=== PATIENT | male | born 1960 | race Caucasian/White ===

== ENCOUNTER → 2017-01-26 | Outpatient (CLI) | payer BC ==
[2017-01-26 18:05] LABS: Total Bilirubin 0.9 mg/dL (0.2-1.3); Total Protein 6.7 g/dL (6.3-8.2)
[2017-01-26 18:18] LABS: Amorphous Sediment,Urine Rare /hpf; Appearance,Urine Clear (Clear); Bilirubin,Urine Negative (Negative); Glucose,Urine (UA) Negative (Negative); Ketones,Urine Negative (Negative); Leukocyte Esterase,Urine Negative (Negative); Mucus,Urine Occasional /hpf; Nitrite,Urine Negative (Negative); PH, Urine 5.5 (5.0-8.0); Particle Count 2803; Protein,Urine Trace (Negative); RBC,Urine 1 /hpf (0-5); Specific Gravity,Urine 1.027 (1.001-1.035); UA Billing (MACRO vs. MICRO) MICRO; Urobilinogen,Urine <2.0 mg/dL (<2.0); WBC,Urine 1 /hpf (0-5)
== END | disposition home or self-care (01) ==
LOC: LABPAT 16:53
PROVIDERS: ATTEND Orthopaedic Surgery
DX: Z01.812 Encounter for preprocedural laboratory examination (principal)
CPT/HCPCS: 36415; 81001; 82040; 82247; 82310; 82947; 84075; 84155; 84450; 84460; 87070

== ENCOUNTER 2019-09-29 06:37 | Emergency (ER) | payer BC, OTHER ==
[2019-09-29] MEDS ORDERED: diazePAM 5 MG TAB PO STA (07:23)
[2019-09-29] MEDS ORDERED: IBUPROFEN 600 MG TAB PO STA (07:24)
--- NOTE | 2019-09-29 07:52 | CT ---
EXAMINATION TYPE: CT cervical spine wo con DATE OF EXAM: 09/29/2019 COMPARISON: None. HISTORY: twisting injury, neck spasms and pain CT DLP: 542.8 mGycm Automated exposure control for dose reduction was used. TECHNIQUE: CT scan of the cervical spine is obtained without contrast, axial images are obtained, sa gittal and coronal reformatted images are also reviewed. FINDINGS: Visualized portions of the lungs are clear. Prevertebral soft tissues are normal. Vertebral body height and alignment are maintained. Atlantoaxial relationships are maintained. No fra ctures are seen. At C2-3, there is no significant compressive discopathy. The facet and uncovertebral joints are unrem arkable. At C3-4, there is disc space loss and hypertrophic spondylosis anteriorly. There is a mixed spondylit ic bar present posteriorly. There is bilateral intervertebral foraminal narrowing. There is minimal f acet arthropathy. There is mild uncovertebral joint disease. C4-5, there is right-sided intervertebral foraminal narrowing. There is a mixed spondylitic bar poste rior laterally on the right causing right-sided intervertebral foraminal narrowing. There is mild fac et arthropathy and mild uncovertebral joint disease. At C5-6, there is disc space loss and hypertrophic spondylosis anteriorly. There is a mixed spondylit ic bar present posteriorly effacing and mildly deforming the thecal sac. There is bilateral intervert ebral foraminal narrowing. There is moderate uncovertebral joint disease. The facets are unremarkable . At C6-7, there is disc space loss. This hypertrophic spondylosis anteriorly. There is a mixed spondyl itic bar present posteriorly effacing the thecal sac. There is bilateral intervertebral foraminal jemma rowing which is fairly severe. There is mild facet arthropathy and mild uncovertebral joint disease. At C7-T1 the intervertebral foramina appear well maintained. There is no significant compressive disc opathy. There is mild facet arthropathy. IMPRESSION: 1. NO ACUTE OSSEOUS LESION. 2. DIFFUSE DEGENERATIVE DISC DISEASE AND HYPERTROPHIC SPONDYLOSIS. 3. MULTILEVEL INTERVERTEBRAL FORAMINAL NARROWING. 4. 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
--- NOTE | 2019-09-29 08:13 | ED ---
General Adult HPI - General Chief complaint: Back Pain/Injury Stated complaint: [facility] - Back & Neck Pain Time Seen by Provider: 09/29/19 07:03 Source: patient, RN notes reviewed, old records reviewed Mode of arrival: ambulatory Limitations: no limitations - History of Present Illness Initial comments: 59-year-old male patient passed medical history of Lipidemia, Arthritis prior back surgery presents ED chief complaint of cervical pain. Patient reports that on September 10 he was pulling on a heavy door Abiel when he felt his neck. Since then he's had continued pain at the C5 C6 C7 region of his cervical spine. Patient has seen his primary care provider he has had x-rays done has also had multiple manipulations by a chiropractor approximately one week ago. He reports he continues to have pain in his neck and the particulars having muscle spasms into his right trapezius region which are very uncomfortable. Patient reports that he occasionally has some paresthesias extending down his left arm however these come and go. Denies any other acute complaints. Systemic: Pt denies fatigue, fever/chills, rash. Pt denies weakness, night sweats, weight loss. Neuro: Pt denies headache, visual disturbances, syncope or pre-syncope. HEENT: Pt denies ocular discharge or irritation, otalgia, rhinorrhea, pharyngitis or notable lymphadenopathy. Cardiopulmonary: Pt denies chest pain, SOB, heart palpitations, dyspnea on exertion. Abdominal/GI: Pt denies abdominal pain, n/v/d. : Pt denies dysuria, burning w/ urination, frequency/urgency. Denies new onset urinary or bowel incontinence. MSK: Pt denies loss of strength or function in extremities. Neuro: Pt denies new onset weakness, paresthesias. - Related Data Home Medications Medication Instructions Recorded Confirmed Atorvastatin [Lipitor] 10 mg PO DAILY 01/27/17 01/30/17 Previous Rx's Medication Instructions Recorded Aspirin 325 mg PO BID #60 tab 02/01/17 HYDROcodone/APAP 7.5-325MG [[place] 1 - 2 tab PO Q4-6H PRN #90 tab 02/01/17 7.5-325] Meloxicam [Mobic] 7.5 mg PO DAILY #14 tab 02/01/17 Sennosides-Docusate Sodium 1 tab PO BID #60 tablet 02/01/17 [Senokot-S] diazePAM [Valium] 5 mg PO BID #14 tab 02/01/17 Cyclobenzaprine [Flexeril] 1 - 2 tab PO TID #20 tablet 09/29/19 Allergies Allergy/AdvReac Type Severity Reaction Status Date / Time No Known Allergies Allergy Verified 01/30/17 14:15 Review of Systems ROS Statement: Those systems with pertinent positive or pertinent negative responses have been documented in the HPI. ROS Other: All systems not noted in ROS Statement are negative. Past Medical History Past Medical History: Hyperlipidemia Additional Past Medical History / Comment(s): arthritis in hips, borderline cholesterol, History of Any Multi-Drug Resistant Organisms: None Reported Past Surgical History: Back Surgery, Tonsillectomy Additional Past Surgical History / Comment(s): 3 disks in back shaved, Past Anesthesia/Blood Transfusion Reactions: No Reported Reaction Past Psychological History: No Psychological Hx Reported Past Alcohol Use History: Rare Past Drug Use History: None Reported - Past Family History Mother Family Medical History: Cancer General Exam - General Exam Comments Initial Comments: Constitutional: NAD, AOX3, Pt has pleasant affect. HEENT: NC/AT, trachea midline, neck supple, no lymphadenopathy. Posterior pharynx non erythematous, without exudates. External ears appear normal, without discharge. Mucous membranes moist. Eyes PERRLA, EOM intact. There is no scleral icterus. No pallor noted. Cardiopulmonary: RRR, no murmurs, rubs or gallops, no JVD noted. Lungs CTAB in anterior and posterior hernandez. No peripheral edema. Abdominal exam: Abdomen soft and non-distended. Abdomen non-tender to palpation in all 4 quadrants. Bowel sounds active in LLQ. No hepatosplenomegaly. No ecchymosis Neuro: CN II-XII intact. No nuchal rigidity. No raccon eyes, no wilkerson sign, no hemotympanum. Mild amount of C5-C6 tenderness MSK: No posterior calf tenderness bilaterally, homans sign negative bilaterally. Posterior tibialis and radial pulse +2 bilaterally. Sensation intact in upper and lower extremities. Full active ROM in upper and lower extremities, 5/5 stregnth. Limitations: no limitations Course Vital Signs 09/29/19 09/29/19 06:53 07:32 Temperature 97.9 F Pulse Rate 110 H Respiratory 16 Rate Blood Pressure 159/93 O2 Sat by Pulse 99 Oximetry Medical Decision Making - Medical Decision Making 59-year-old male patient passed medical history of Lipidemia, Arthritis prior back surgery presents ED chief complaint of cervical pain. Patient reports that on September 10 he was pulling on a heavy door Abiel when he felt his neck. Since then he's had continued pain at the C5 C6 C7 region of his cervical spine. Patient has seen his primary care provider he has had x-rays done has also had multiple manipulations by a chiropractor approximately one week ago. He reports he continues to have pain in his neck and the particulars having muscle spasms into his right trapezius region which are very uncomfortable. Patient reports that he occasionally has some paresthesias extending down his left arm however these come and go. Denies any other acute complaints. Pt VSS, afebrile. Physical exam displayed mild amount of lower cervical tenderness. CT cervical spine displayed diffuse degenerative disc disease and hypertrophic spondylosis. Multilevel intervertebral foraminal narrowing. On the bar causing varying degrees of central Compromise. Patient discharged with muscle relaxants he recently completed prednisone. He will outpatient primary care follow-up. He is neurovascularly intact and stable for discharge. Case discussed with Dr. Colby. Disposition Clinical Impression: Cervical pain, Muscle spasm, Degenerative disc disease Disposition: HOME SELF-CARE Condition: Stable Instructions (If sedation given, give patient instructions): Degenerative Disc Disease (ED) Additional Instructions: Follow up with orthopedic surgeon tomorrow. Try using flexeril instead of the cyclobenzaprine. Use muscle relaxers as needed. Pain medication as needed. Follow up with PCP in 1-2 days. Return to ER condition worsens. Prescriptions: Cyclobenzaprine [Flexeril] 1 - 2 tab PO TID #20 tablet Is patient prescribed a controlled substance at d/c from ED?: No Referrals: Homero Hernandez DO [Primary Care Provider] - 1-2 days Charles Carbajal DO [Doctor of Osteopathic Medicine] - 1-2 days
[2019-09-29] MEDS ORDERED: ACET/COD 300 MG/30 MG STARTER PACK 6 TAB BTL PO STA (08:23)
[2019-09-29 08:45] VITALS: BP 158/86; PULSE 100; RESP 20; TEMP 97.8
== END 2019-09-29 08:44 | disposition home or self-care (01) ==
LOC: EC 06:37
DX: M50.30 Other cervical disc degeneration, unspecified cervical region (principal); M62.838 Other muscle spasm; M47.812 Spondylosis without myelopathy or radiculopathy, cervical region; M48.02 Spinal stenosis, cervical region; E78.5 Hyperlipidemia, unspecified; Z79.899 Other long term (current) drug therapy; X50.1XXA Overexertion from prolonged static or awkward postures, initial encounter
CPT/HCPCS: 72125; 99284

== ENCOUNTER → 2021-11-30 | Day surgery (SDC) | payer BC, OTHER ==
[2021-11-26 13:35] VITALS: BMI 32.9
[~2021-11-30] MED LIST: LACTATED RINGERS 1,000 ML IV SCH; LIDOCAINE 1% (10MG/ML) FOR IV START INTRADERMA PRN; PROPOFOL 10 MG/ML 20 ML VIAL IV ONE
[2021-11-30 09:22] VITALS: RESP 16; TEMP 97.8
--- NOTE | 2021-11-30 10:23 | P.PCN ---
Date of Procedure: 11/30/21 Procedure(s) Performed: BRIEF HISTORY: Patient is a 61-year-old pleasant male scheduled for an elective colonoscopy as a part of screening for colorectal neoplasia. His last colonoscopy was 10 years ago. PROCEDURE PERFORMED: ColonoscopyWith biopsy. PREOPERATIVE DIAGNOSIS: screening for colon cancer. IV sedation per Anesthesia. PROCEDURE: After informed consent was obtained, the patient, was brought into the endoscopy unit. IV sedation was administered by Anesthesia under continuous monitoring. Digital rectal examination was normal. Initially the Olympus CF-160 flexible video colonoscope was then inserted in the rectum, gradually advanced into the cecum without any difficulty. Careful examination was performed as the scope was gradually being withdrawn. Ileocecal valve and the appendiceal orifice were visualized and appeared normal. Prep was excellent. Mucosa of the cecum, ascending colon, transverse colon, descending colon, sigmoid colon, and rectum appeared normal.in the rectum there was a 3 mm polyp that was removed by cold biopsy. Scattered diverticulosis seen. Retroflexion was performed in the rectum and no lesions were seen. The patient tolerated the procedure well. IMPRESSION: 3 mm rectal polyp status post cold biopsy Rest of the colon appeared normal Scattered diverticulosis RECOMMENDATIONS: Findings of this examination were discussed with the patient as well as his family. He was advised to follow with the biopsy results.if the biopsy reveals adenoma he can have a repeat colonoscopy in 5 years.
[2021-11-30 11:12] VITALS: BP 132/67; PULSE 54
== END ==
LOC: ORWHC2ENDO 08:48
PROVIDERS: ATTEND Internal Medicine Gastroenterology
DX: Z12.11 Encounter for screening for malignant neoplasm of colon (principal); K57.30 Diverticulosis of large intestine without perforation or abscess without bleeding; D12.8 Benign neoplasm of rectum
CPT/HCPCS: 88305; 45380; J2704